=== PATIENT | male | born 1935 | race Caucasian/White ===

== ENCOUNTER → 2016-09-30 | Outpatient (CLI) | payer MEDICARE | LOC: LGSMG 12:49 | DX: E87.5 Hyperkalemia (principal) ==

== ENCOUNTER → 2017-01-22 | Outpatient (CLI) | payer MEDICARE | END | disposition disaster alternative care site (69) | LOC: GAMB 08:30 | DX: R53.1 Weakness (principal); N18.6 End stage renal disease | CPT/HCPCS: A0425; A0427 ==